=== PATIENT | male | born 1960 | race Asian ===

== ENCOUNTER 2022-10-21 11:49 | Emergency (ER) | payer OTHER ==
[~2022-10-21] VITALS: Ht 162.6 cm; Wt 68.0 kg
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
--- NOTE | 2022-10-21 12:07 | NUR ---
MD DR OJEDA AT BEDSIDE
[2022-10-21] MEDS ORDERED: DIPHTH,PERTUSS(ACELL),TET VAC 0.5 ML VIAL (Tdap) I.M. ONE (12:15)
--- NOTE | 2022-10-21 12:43 | NUR ---
Pt taken to radiology via [facility].
--- NOTE | 2022-10-21 12:45 | NUR ---
PT TAKEN TO CT
[2022-10-21 14:50] VITALS: BP_SYST 145
--- NOTE | 2022-10-21 14:51 | NUR ---
Patient given written and verbal discharge instructions and verbalizes understanding. ER MD DR OJEDA discussed with patient the results and treatment provided. Patient in stable condition. ID arm band removed. IV catheter removed intact and dressing applied, no active bleeding. Patient educated on pain management and to follow up with PMD. Pain Scale 0/10. Opportunity for questions provided and answered. Medication side effect fact sheet provided.
== END 2022-10-21 14:51 | disposition home or self-care (01) ==
LOC: SED 11:49
DX: S01.111A Laceration without foreign body of right eyelid and periocular area, initial encounter (principal); S09.90XA Unspecified injury of head, initial encounter; Z88.0 Allergy status to penicillin; Z79.899 Other long term (current) drug therapy; V89.2XXA Person injured in unspecified motor-vehicle accident, traffic, initial encounter; Y93.89 Activity, other specified; Y92.89 Other specified places as the place of occurrence of the external cause; Y99.8 Other external cause status
CPT/HCPCS: 70450-TC; 72125-TC; 76376; 99285